=== PATIENT | female | born 1965 | race Caucasian/White ===

== ENCOUNTER 2018-05-10 19:05 | Emergency (ER) | payer OTHER ==
[~2018-05-10] VITALS: Ht 160 cm; Wt 82.8 kg
[~2018-05-10 19:05] MED LIST: COLACE100 MG PO; FERROUS SULFAT325 MG PO; MEGACE20 MG PO; NOHOMEMEDS; ZITHROMAX TRI-500 MG PO
[2018-05-10] MEDS ORDERED: AUGMENTIN875 MG PO (21:42)
[2018-05-10 21:47] VITALS: BP 126/78
== END 2018-05-10 21:48 | disposition home or self-care (01) ==
LOC: EME 19:05
PROC: 3E0234Z Introduction of Serum, Toxoid and Vaccine into Muscle, Percutaneous Approach (ICD-10-PCS; principal; 2018-05-10)
DX: L03.113 Cellulitis of right upper limb (principal); W55.01XA Bitten by cat, initial encounter; Z23 Encounter for immunization; I10 Essential (primary) hypertension; Z88.5 Allergy status to narcotic agent
CPT/HCPCS: 73110; 99281; 99284